=== PATIENT | male | born 1980 | race Caucasian/White ===

== ENCOUNTER 2017-12-25 11:22 | Outpatient (CLI) | payer OTHER ==
--- NOTE | 2017-12-25 12:58 | RAD ---
RIGHT HIP 2 VIEWS: Date: 12/25/17 HISTORY: Pain. Fall yesterday. COMPARISON: None. FINDINGS/IMPRESSION: Contour of the femoral head is maintained. Joint spaces are preserved. No obvious fracture. If patien t is unable to bear weight, consider CT. POS: [facility]
== END 2017-12-25 11:23 | disposition home or self-care (01) ==
LOC: MADRAD 11:22
PROVIDERS: ATTEND General Practice
DX: M25.551 Pain in right hip (principal)

== ENCOUNTER 2019-12-29 13:04 | Emergency (ER) | payer BC, OTHER ==
[2019-12-29] MEDS ORDERED: Ketorolac Tromethamine 60 MG/2 ML VIAL ONE (13:46)
== END 2019-12-29 14:10 | disposition home or self-care (01) ==
LOC: MADERS 13:04
DX: M54.9 Dorsalgia, unspecified (principal); M25.551 Pain in right hip
CPT/HCPCS: 96372; 99283; J1885